=== PATIENT | female | born 1995 | race Caucasian/White ===

== ENCOUNTER 2025-07-03 20:54 | Inpatient (IN) | payer BC ==
[2025-07-03] MEDS ORDERED: HYDROcodone/Acetaminophen 5/325 mg Tablet PO PRN ×2 (21:11)
[2025-07-03] MEDS ORDERED: Acetaminophen 500 MG TAB PO PRN (21:11)
[2025-07-03] MEDS ORDERED: Diphenoxylate HCl/Atropine Tablet PO PRN ×2 (21:11)
[2025-07-03] MEDS ORDERED: Carboprost 250 MCG/ML AMP IM PRN (21:11)
[2025-07-03] MEDS ORDERED: Oxytocin 30 units/NS 500 ML 500 ML IV SCH (21:11)
[2025-07-03] MEDS ORDERED: Ondansetron PF 4 MG/2 ML Vial IVP PRN (21:11)
[2025-07-03] MEDS ORDERED: Tranexamic Acid 1,000 MG/10 ML VIAL IVP PRN (21:11)
[2025-07-03] MEDS ORDERED: Lidocaine 1% (PF) 30 ML VIAL SC PRN (21:11)
[2025-07-03] MEDS ORDERED: Ibuprofen 800 MG TAB PO PRN (21:11)
[2025-07-03] MEDS ORDERED: Penicillin G Potassium 5 MILL.UNITS in Sodium Chloride 0.9% 100 ML IVPB SCH (21:11)
[2025-07-03] MEDS ORDERED: hydrALAZINE 20 MG/ML VIAL SLOW IVP PRN (21:11)
[2025-07-03] MEDS ORDERED: Methylergonovine 0.2 MG/ML VIAL IM PRN (21:11)
[2025-07-03 21:32] VITALS: BMI 39.5
[2025-07-03 22:07] LABS: Hematocrit 36.9 % (34.9-44.5); Hemoglobin 12.7 g/dL (12.0-15.5); Mean Corpuscular Hemoglobin 31.3 pg (27.0-33.0); Mean Corpuscular Volume 90.9 fL (81.6-98.3); Platelet Count 199 10x3/uL (150-450); Red Blood Cell (RBC) Count 4.06 10x6/uL (3.90-5.03); White Blood Cell (WBC) Count 11.71 10x3/uL (3.5-10.5)
[2025-07-03 22:39] LABS: Hep B Surf Ag - L&D Non-Reactive S/CO (NonReactive)
[2025-07-03 22:40] LABS: Syphilis Antibody Index 0.04 S/CO (<1.00 Non-Reactive)
[2025-07-04] MEDS: fentaNYL/Ropivacaine Epidural 100 ML ONE (08:57)
[2025-07-04] MEDS: Penicillin G 2.5 MILL.units 2.5 MILL.UNITS in Premix 1 BAG IVPB SCH (09:37)
[2025-07-04] MEDS ORDERED: Ondansetron PF 4 MG/2 ML Vial IVP PRN (10:35)
[2025-07-04] MEDS ORDERED: diphenhydrAMINE 50 MG/ML VIAL IVP PRN (10:35)
[2025-07-04] MEDS ORDERED: Acetaminophen 325 MG TAB PO PRN (10:35)
[2025-07-04] MEDS ORDERED: Communication Order-Pharmacy FS SCH (10:45)
[2025-07-04] MEDS ORDERED: fentaNYL 2 mcg/Ropivacaine 0.2% Epidural 100 ML CADD EPIDURAL SCH (10:45)
[2025-07-04] MEDS: Oxytocin 30 units/NS 500 ML 500 ML IV SCH (11:03)
[2025-07-04] MEDS ORDERED: Bupivacaine 0.25% HCL 30 ML VIAL ONE (13:00)
[2025-07-04] MEDS ORDERED: Lanolin Ointment 7 GM TUBE TOP PRN (17:07)
[2025-07-04] MEDS ORDERED: hydrALAZINE 20 MG/ML VIAL SLOW IVP PRN (17:07)
[2025-07-04] MEDS ORDERED: diphenhydrAMINE 25 MG CAP PO PRN (17:07)
[2025-07-04] MEDS ORDERED: Preparation H Ointment 28 GM TUBE PR PRN (17:07)
[2025-07-04] MEDS ORDERED: Boostrix 0.5 ML (Tdap) VIAL (>/=7 yrs of age) IM ONE (17:07)
[2025-07-04] MEDS ORDERED: Milk Of Magnesia 30 ML UDCUP PO PRN (17:07)
[2025-07-04] MEDS ORDERED: Bisacodyl 10 MG SUPP PR PRN (17:07)
[2025-07-04] MEDS: Ibuprofen 800 MG TAB PO SCH (21:52)
[2025-07-05] MEDS: Benzocaine-Menthol 82.5 ML CAN TOP PRN (08:51)
[2025-07-05 16:20] VITALS: BP 122/81; TEMP 98.1
[2025-07-05] MEDS: Ferrous Sulfate 325 MG TAB PO SCH (18:49)
== END 2025-07-05 18:30 | disposition home or self-care (01) | DRG 807 ==
LOC: CSHLD 20:54 → CSHPP 07-04 13:40
PROVIDERS: ADMIT Obstetrics & Gynecology; ATTEND Obstetrics & Gynecology
PROC: 10E0XZZ Delivery of Products of Conception, External Approach (ICD-10-PCS; principal; 2025-07-03)
PROC: 3E02340 Introduction of Influenza Vaccine into Muscle, Percutaneous Approach (ICD-10-PCS; 2025-07-03)
DX: O69.81X0 Labor and delivery complicated by cord around neck, without compression, not applicable or unspecified (principal); Z37.0 Single live birth; Z3A.39 39 weeks gestation of pregnancy; Z79.899 Other long term (current) drug therapy; Z23 Encounter for immunization
CPT/HCPCS: 51702; 85027; 86780; 86850; 86900; 86901; 87340; J0665; J2540; J2590; J7120